=== PATIENT | female | born 1940 | race Caucasian/White ===

== ENCOUNTER 2020-07-26 11:45 | Emergency (ER) | payer MEDICARE ==
[~2020-07-26 11:45] MED LIST: ANTIVERT 25MG T25 MG PO; CLONIDINE HCL0.1 MG PO; MECLIZINE HCL25 MG PO; PHENERGAN 12.12.5 M1 PO
== END 2020-07-26 14:50 | disposition home or self-care (01) ==
LOC: ER1 11:45
DX: S93.401A Sprain of unspecified ligament of right ankle, initial encounter (principal); R07.81 Pleurodynia; M54.6 Pain in thoracic spine; I10 Essential (primary) hypertension; W19.XXXA Unspecified fall, initial encounter; Y92.009 Unspecified place in unspecified non-institutional (private) residence as the place of occurrence of the external cause
CPT/HCPCS: 71111; 73610; 99283

== ENCOUNTER → 2021-06-27 | Outpatient (CLI) | payer MEDICARE | LOC: MAMO 14:00 | DX: Z12.31 Encounter for screening mammogram for malignant neoplasm of breast (principal) | CPT/HCPCS: 77063; 77067 ==

== ENCOUNTER → 2022-01-26 | Outpatient (CLI) | payer MEDICARE | LOC: RAD 08:00 | DX: K92.2 Gastrointestinal hemorrhage, unspecified (principal) | CPT/HCPCS: 74270 ==